=== PATIENT | female | born 1990 | race Two or more races ===

== ENCOUNTER 2017-03-24 21:03 | Emergency (ER) | payer SELFPAY ==
[~2017-03-24] VITALS: Ht 165.1 cm; Wt 63.5 kg
[2017-03-24 21:20] VITALS: BP 120/63
[2017-03-24 21:39] LABS: BILIRUBIN,URINE NEGATIVE (NEG); GLUCOSE,URINE NEGATIVE (NEG); NITRITE,URINE NEGATIVE (NEG); PROTEIN,URINE NEGATIVE (NEG-TRACE); UROBILINOGEN,URINE 0.2 mg/dL (0.2 mg/dL)
--- NOTE | 2017-03-24 21:50 | PHYS DOC ---
Past Medical History Past Medical History: Other Additional Past Medical Histor: htn with Past Surgical History: No Surgical History Alcohol Use: None Drug Use: None Adult General Chief Complaint Chief Complaint: ABDOMINAL PAIN IN HPI HPI Patient is a 26 year old female who presents with the complaints of pelvic pain. Patient is and states she's had 3 positive test at home, she estimates maybe 2 weeks . However, per nursing test in the ED is negative. Patient complains of mild low back pain as well as vaginal discharge. Denies any dysuria symptoms or vaginal bleeding. Patient has no other complaints. Review of Systems Review of Systems Constitutional: Denies fever or chills [] Eyes: Denies change in visual acuity, redness, or eye pain [] HENT: Denies nasal congestion or sore throat [] Respiratory: Denies cough or shortness of breath [] Cardiovascular: No S pain GI: Denies abdominal pain, nausea, vomiting, bloody stools or diarrhea. Yes to pelvic pain : Denies dysuria or hematuria, denies vaginal bleeding. Yesterday vaginal discharge Musculoskeletal: Yes to low back pain. Integument: Denies rash or skin lesions [] Neurologic: Denies headache, focal weakness or sensory changes [] Endocrine: Denies polyuria or polydipsia [] Allergies Allergies Allergies Coded Allergies Type Severity Reaction Last Updated Verified No Known Drug Allergies 07/28/13 No Physical Exam Physical Exam Constitutional: Well developed, well nourished, no acute distress, non-toxic appearance. [] HENT: Normocephalic, atraumatic, bilateral external ears normal, oropharynx moist, no oral exudates, nose normal. [] Eyes: PERRLA, EOMI, conjunctiva normal, no discharge. [] Neck: Normal range of motion, no tenderness, supple, no stridor. [] Cardiovascular:Heart rate regular rhythm, no murmur [] Lungs & Thorax: Bilateral breath sounds clear to auscultation [] Abdomen: Bowel sounds normal, soft, no tenderness, no masses, no pulsatile masses. : External exam normal, pulses close, no bleeding, small amount of white discharge, no adnexal masses, no adnexal tenderness, no CMT[] Skin: Warm, dry, no erythema, no rash. [] Back: No tenderness, no CVA tenderness. [] Extremities: No tenderness, no cyanosis, no clubbing, ROM intact, no edema. [] Neurologic: Alert and oriented X 3, normal motor function, patient relates in the ED with normal gait and without assistance, no focal deficits noted. [] Psychologic: Affect normal, judgement normal, mood normal. [] Current Patient Data Vital Signs Vital Signs Date Time Temp Pulse Resp B/P (MAP) Pulse Ox O2 Delivery O2 Flow Rate FiO2 03/24/17 21:20 98.7 63 18 120/63 (82) 99 Room Air 98.7 Lab Values Laboratory Tests Test 03/24/17 21:19 03/24/17 21:23 Urine Collection Type Unknown Urine Color Yellow Urine Clarity Clear Urine pH 7.0 Urine Specific Patriot 1.010 Urine Protein Negative mg/dL (NEG-TRACE) Urine Glucose (UA) Negative mg/dL (NEG) Urine Ketones (Stick) Negative mg/dL (NEG) Urine Blood Negative (NEG) Urine Nitrite Negative (NEG) Urine Bilirubin Negative (NEG) Urine Urobilinogen Dipstick 0.2 mg/dL (0.2 mg/dL) Urine Leukocyte Esterase Negative (NEG) Urine RBC Occ /HPF (0-2) Urine WBC 0 /HPF (0-4) Urine Squamous Epithelial Cells Few /LPF Urine Bacteria 0 /HPF (0-FEW) POC Urine HCG, Qualitative Hcg negative (Negative) EKG EKG [] Radiology/Procedures Radiology/Procedures [] Course & Med Decision Making Course & Med Decision Making Pertinent Labs and Imaging studies reviewed. (See chart for details) I expect the patient that some of the swabs and test that we send take a couple days to result I advised her that she if she hasn't and a call in 2 days to call here to find out the results of her tests, patient agrees to do so [] Dragon Disclaimer Dragon Disclaimer This electronic medical record was generated, in whole or in part, using a voice recognition dictation system. Departure Departure Impression: Primary Impression: Pelvic pain Additional Impression: Low back pain Disposition: HOME, SELF-CARE Condition: STABLE Referrals: NO PCP (PCP) Please follow-up with your doctor for recheck and reevaluation within 1 week, or he may follow-up at one of the clinics in the list provided to you. You may take Tylenol for pain control. Patient Instructions: Back Pain, Adult, Pelvic Pain, Female Problem Qualifiers CONLEY,F. GEORGETTE MD Mar 24, 2017 21:50
[2017-03-24 21:56] LABS: BACTERIA,URINE 0 /HPF (0-FEW); RBC,URINE OCC /HPF (0-2); SQUAMOUS EPITHELIAL CELL,UR FEW /LPF; WBC,URINE 0 /HPF (0-4)
== END 2017-03-24 22:58 | disposition home or self-care (01) ==
LOC: ER 21:03
DX: R10.2 Pelvic and perineal pain (principal); M54.5 Low back pain; N89.8 Other specified noninflammatory disorders of vagina
CPT/HCPCS: 81001; 81025; 87491; 87591; 99284